=== PATIENT | male | born 1945 | race American Indian/Alaskan Native ===

== ENCOUNTER 2018-12-02 10:07 | Day surgery (SDC) | payer MEDICARE ==
[~2018-12-02 10:07] MED LIST: ANCEF/STERILE WATER 2 GM/20 ML 2 GM/20 ML SYRINGE IV NR; ceFAZolin 2 GM in NACL 0.9% 100 ML IV ONE
[2018-12-02] MEDS ORDERED: LACTATED RINGERS 1,000 ML IV SCH (11:00)
--- NOTE | 2018-12-02 11:10 | Anesthesia Day of Surgery ---
Anesthesia Day of Surgery - Day of Surgery Patient Examined: Yes Patient H&P Reviewed: Yes Patient is NPO: Yes
--- NOTE | 2018-12-02 11:10 | Anesthesia Consultation ---
Anesthesia Consult and Med Hx Date of service: 12/02/18 - Airway Anesthetic Teeth Evaluation: Poor ROM Head & Neck: Adequate Mental/Hyoid Distance: Adequate Mallampati Class: Class II Intubation Access Assessment: Probably Good - Pulmonary Exam CTA: Yes - Cardiac Exam Cardiac Exam: RRR - Pre-Operative Health Status ASA Pre-Surgery Classification: ASA2 Proposed Anesthetic Plan: General - Pulmonary Hx Smoking: Yes (FORMER QUIT 30 YEARS AGO) Hx Sleep Apnea: No - Cardiovascular System Hx Hypertension: Yes (FOR 20+ YRS, DR. 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
[2018-12-02] MEDS ORDERED: XYLOCAINE 1% 20 mL ONE (11:15)
[2018-12-02] MEDS ORDERED: MARCAINE 0.5% INFILTRATI ONE ×2 (11:15→13:33)
[2018-12-02] MEDS ORDERED: DILAUDID ONE (11:45)
[2018-12-02] MEDS ORDERED: XYLOCAINE MPF 2% ONE (11:46)
[2018-12-02] MEDS ORDERED: DIPRIVAN 10 MG/ML IV ONE (11:46)
[2018-12-02] MEDS ORDERED: ZEMURON IV ONE (11:46)
[2018-12-02] MEDS ORDERED: PEPCID PO NR (12:00)
[2018-12-02] MEDS ORDERED: DECADRON ONE (12:14)
[2018-12-02] MEDS ORDERED: XYLOCAINE 1% 20 mL INFILTRATI ONE (13:34)
[2018-12-02] MEDS ORDERED: LACTATED RINGERS 1,000 ML ONE (13:34)
[2018-12-02] MEDS ORDERED: NACL 0.9% IR ONE (13:34)
[2018-12-02] MEDS ORDERED: WATER FOR IRRIG STERILE IR ONE (13:34)
[2018-12-02] MEDS ORDERED: BLOXIVERZ ONE (14:13)
[2018-12-02] MEDS ORDERED: ROBINUL ONE (14:13)
[2018-12-02] MEDS ORDERED: TORADOL ONE (14:15)
[2018-12-02] MEDS ORDERED: ZOFRAN ONE (14:15)
--- NOTE | 2018-12-02 14:17 | Short Stay Summary ---
Short Stay Documentation Date of service: 12/02/18 - History Principal diagnosis: left inguinal hernia H&P: obtained from office - Allergies and Medications Current Medications: Allergies No Known Allergies Allergy (Verified 11/30/18 16:11) Home Medications Medication Instructions Recorded Confirmed Last Taken Type Lisinopril [Zestril] 20 mg PO QDAY 03/27/16 12/02/18 12/01/18 09:00 History Tamsulosin [Flomax] 0.4 mg PO QDAY 03/27/16 12/02/18 11/30/18 History amLODIPine [Norvasc] 5 mg PO DAILY 03/27/16 12/02/18 12/02/18 08:00 History Ferrous Sulfate [High Potency Iron] 27 mg PO DAILY 11/30/18 12/02/18 11/30/18 History Multivit-Min/Iron/Folic/Lutein 1 each PO DAILY 11/30/18 12/02/18 12/01/18 History [Centrum Silver Women Tablet] Active Medications Famotidine (Pepcid) 20 mg PO PREOP NR Stop: 12/02/18 23:59 Last Admin: 12/02/18 11:41 Dose: 20 mg Documented by: Cefazolin Sodium (Ancef/Sterile Water 2 Gm/20 Ml) 2 gm in 20 mls @ 80 mls/hr IV PREOP NR Stop: 12/02/18 15:00 Lactated Ringer's (Lactated Ringers) 1,000 mls @ 100 mls/hr IV DIRECT CAROLE Last Admin: 12/02/18 11:30 Dose: 100 mls/hr Documented by: - Brief post op/procedure progress note Date of procedure: 12/02/18 Pre-op diagnosis: left inguinal hernia Post-op diagnosis: same Procedure: robotic assisted left inguinal hernia repair with mesh Anesthesia: GETA, local Findings: indirect and direct hernia components, large cord lipoma. Evidence of prior right inguinal hernia repair with mesh Surgeon: ADIS MILLAN Heel Sander: EVA HALE Estimated blood loss: minimal Pathology: none Condition: stable - Hospital course Hospital course: Pt observed in PACU and discharged to home in stable condition when criteria met - Disposition Condition at discharge: Good Disposition: DC-01 TO HOME OR SELFCARE Short Stay Discharge Plan Activity: other (no heavy lifting greater than 15 lbs. No driving if taking prescription pain medications) Diet: regular Wound: open to air Additional Instructions: SEE PRINTED DISCHARGE INSTRUCTIONS Follow up with: LANEY KEITA MD [Primary Care Provider] - 7 Days ADIS MILLAN DO [Staff Physician] - 14 Days Prescriptions: HYDROcodone/APAP 5-325 [Newberry 5/325] 1 each PO Q4HR PRN #20 tablet PRN Reason: Pain
[2018-12-02] MEDS ORDERED: NORCO 5/325 PO PRN (14:44)
--- NOTE | 2018-12-02 15:44 | Operative Report ---
PREOPERATIVE DIAGNOSIS: Reducible left inguinal hernia. POSTOPERATIVE DIAGNOSIS: Reducible left inguinal hernia. PROCEDURE: Robotic-assisted left inguinal hernia repair with mesh. ANESTHESIA: General endotracheal anesthesia, local. FINDINGS: Indirect and direct hernia components, large cord lipoma. There was an evidence of a prior right inguinal hernia repair with mesh. SURGEON: Charlette Hein DO. AIRCRAFT ENGINEER: Jenny Otero MD ESTIMATED BLOOD LOSS: Minimal. PATHOLOGY: None. CONDITION: Stable. HISTORY OF PRESENT ILLNESS AND INDICATION: The patient is a 73-year-old male, who was referred to the office for a symptomatic left inguinal hernia. The patient did think that he had a prior left inguinal hernia repair in the past, but could not remember whether it was done laparoscopically or open. The left inguinal hernia was reducible on exam; however, the patient was having symptoms of pain and limited mobility due to the hernia. It was recommended that the hernia be repaired. I discussed all risks, benefits and alternatives of the surgery with the patient and we reviewed the robotic, laparoscopic, open approaches to surgery. All questions were answered. Consent was obtained. PROCEDURE IN DETAIL: The patient was identified in the preoperative area and the left groin marked He was taken back to the operating room, placed on the operating table in supine position. After anesthesia was induced, a Hoskins catheter was sterilely placed by the circulating nurse. Both arms were tucked and all bony prominences padded appropriately. The abdomen and left groin were prepped and draped in the usual sterile fashion. A timeout performed. The local anesthetic was infiltrated into all skin incision sites. A supraumbilical incision was made through which a Veress needle was inserted. The Veress needle positioning was confirmed using the saline drop test. Once the abdomen was insufflated to 15 mmHg, the Veress needle was withdrawn and a 5 mm Optiview trocar was placed through this incision. The abdomen was inspected. There was no underlying injury to any of the abdominal structures. The patient was placed in Trendelenburg and the pelvis inspected. It appeared that the patient had a history of a right inguinal hernia repair with mesh. There was no evidence of left inguinal hernia repair. Therefore, two additional robotic trocars were placed, 1 in the left upper quadrant, 1 in the right upper quadrant under direct visualization. The 5 mm trocar was then removed and the incision extended. A 12 mm balloon trocar was placed through the supraumbilical incision under direct visualization. The robot was then docked. A fenestrated bipolar grasper was placed in arm #2 and a monopolar scissor placed in arm #1. The surgeon was then transferred to the console. The peritoneum approximately 6-7 cm cephalad from the hernia defect was scored using the scissor and the peritoneal flap was then developed in an avascular plane. Hemostasis was achieved along the way. First, the lateral space was dissected and the lateral aspect of the hernia encountered. The direct hernia was then reduced. We then turned our attention to the medial dissection. The pubic tubercle was identified and cleared of overlying fat and tissue. We then turned our attention to reducing the indirect component of the hernia. A large cord lipoma was found at the lateral aspect of the hernia, which was reduced in its entirety. The hernia sac was identified and from the cord structures and reduced. The vasc deferens and other cord structures were identified and intact. Once the hernias were reduced, the space was checked for hemostasis, which was ensured. A large left Bard 3DMax mesh was then introduced into the abdominal cavity via the 12 mm port along with suture material. The mesh was positioned in the pocket with the medial aspect over the pubic tubercle and laid over the cord structures appropriately. All hernia spaces were covered. The mesh was sutured into place medially to the pubic tubercle using 0 Vicryl interrupted stitch and laterally to the anterior abdominal wall using an 0 Vicryl interrupted stitch. The peritoneum was then reapproximated using a 3-0 V-Loc running suture. The cord lipoma was incorporated into this repair in order to buttress the repair and prevent the cord lipoma from slipping under the mesh. Once the peritoneum was reapproximated, no mesh was visualized. The robot was then undocked and the remainder of the case performed laparoscopically. The surgeon was scrubbed back in and the two needles were removed under direct visualization. The 12 mm port was then removed and the fascia closed with an 0 Vicryl interrupted stitch using the Greg-Pee device. The remaining ports were removed under direct visualization and the abdomen fully desufflated. The skin incisions were once again infiltrated with local anesthetic and the skin closed with 4-0 Monocryl subcuticular stitches and skin glue. At the end of the case, all sponge, instrument, and sharp counts were correct x 2. The Hoskins catheter was removed and the patient awoken from anesthesia and extubated. He was transferred to the stretcher and taken to PACU in stable condition. Please note at the end of the case both testicles were palpated in a normal anatomic position in the scrotum. JOB# [id number] NK/ROSEMARIE DIANA
[2018-12-02 16:05] VITALS: BP 124/71
== END 2018-12-02 17:15 | disposition home or self-care (01) ==
LOC: OR 10:07
PROVIDERS: ATTEND Surgery
DX: K40.90 Unilateral inguinal hernia, without obstruction or gangrene, not specified as recurrent (principal); I10 Essential (primary) hypertension; Z79.899 Other long term (current) drug therapy; Z79.01 Long term (current) use of anticoagulants; Z72.89 Other problems related to lifestyle; Z98.890 Other specified postprocedural states
CPT/HCPCS: 49650; C1781; J0690; J1100; J1170; J1885; J2405; J2704; J2710; J7120